=== PATIENT | male | born 1960 | race Two or more races ===

== ENCOUNTER 2019-04-06 02:13 | Inpatient (IN) | payer OTHER ==
[~2019-04-06] VITALS: Ht 175.3 cm; Wt 80.3 kg
--- NOTE | 2019-04-06 07:00 | NUR ---
RN NOTES RECEIVED PATIENT IN BED, ALERT AND ORIENTED X4, ON ROOM AIR, NOT ON ANY FORM OF DISTRESS. WITH COMPLAINTS OF THROAT PAIN. INFORMED PATIENT THAT IM STILL WAITING FOR THE MD'S ADMITTING ORDERS AND WILL ADMINISTER PAIN MEDICATION IF ORDERED. IC ACCESS NOTED ON BILATERAL AC, BOTH G 20. LEFT IN PLACE AND PATENT, RIGHT IS INFILTRATED AND IS PAINFUL ON FLUSHING- WILL REMOVED. PATIENT ORIENTED TO FLOOR AND USE OF CALL LIGHT. ENCOURAGE TO CALL FOR HELP AND ASSISTANCE. SAFETY MEASURES OBSERVED AND PUT IN PLACE, CALL LIGHT PLACED WITHIN REACH. WILL CONTINUE TO MONITOR FOR PATIENT PHIL BESS NP FOR ADMITTING ORDERS
[2019-04-06 08:00] VITALS: BP 98/65
[2019-04-06] MEDS ORDERED: METF-440 PO (08:34)
[2019-04-06] MEDS ORDERED: GABA-534 PO (08:34)
[2019-04-06] MEDS ORDERED: MORPHINE SULFATE INJ 2 MG/ML DISP.SYRIN IV PRN (10:00)
[2019-04-06] MEDS ORDERED: ACETAMINOPHEN 325 MG TABLET PO PRN (10:00)
[2019-04-06] MEDS ORDERED: HYDROCODONE/APAP 5/325MG 1 EACH TABLET PO PRN (10:00)
[2019-04-06] MEDS ORDERED: ONDANSETRON HCL/PF 4 MG/2 ML VIAL IVP PRN (10:00)
[2019-04-06] MEDS ORDERED: MAG HYDROX/AL HYDROX/SIMETH 30 ML UDC PO PRN (10:00)
[2019-04-06] MEDS ORDERED: DEXTROSE 50%-WATER 50 ML DISP.SYRIN IV PRN (10:00)
[2019-04-06] MEDS ORDERED: ZOLPIDEM TARTRATE 5 MG TABLET PO PRN (10:00)
[2019-04-06] MEDS ORDERED: MAGNESIUM HYDROXIDE 30 ML UDC PO PRN (10:00)
[2019-04-06] MEDS ORDERED: GABAPENTIN 300 MG CAPSULE PO SCH (10:30)
[2019-04-06 10:35] LABS: BASOPHILS % (AUTO) 0.3 % (0.0-2.0); HEMATOCRIT 45 % (39-51); HEMOGLOBIN 15.2 g/dL (13.5-17.5); LYMPHOCYTES # (AUTO) 0.8 /CMM (0.8-4.8); LYMPHOCYTES % (AUTO) 5.3 % (20.0-44.0); MEAN CORPUSCULAR HGB CONC 34 g/dl (31.0-36.0); MEAN CORPUSCULAR VOLUME 91 fL (80-96); MONOCYTES # (AUTO) 0.4 /CMM (0.1-1.30); MONOCYTES % (AUTO) 2.6 % (2.0-12.0); NEUTROPHILS # (AUTO) 13.4 /CMM (1.8-8.9); NEUTROPHILS % (AUTO) 91.8 % (43.0-81.0); PLATELET COUNT (AUTO) 141 /CMM (150-450); RED BLOOD CELL COUNT(AUTO) 4.92 MIL/uL (4.5-6.0); WHITE BLOOD COUNT (AUTO) 14.6 K/uL (4.3-11.0)
[2019-04-06 10:45] LABS: ALBUMIN 3.1 g/dL (3.4-5.0); BILIRUBIN,DIRECT 0.2 mg/dL (0.0-0.2); BILIRUBIN,TOTAL 0.6 mg/dL (0.2-1.0); CALCIUM, SERUM 8.3 mg/dL (8.5-10.1); CREATININE 0.8 mg/dL (0.6-1.3); PHOSPHORUS 1.8 mg/dL (2.5-4.9); POTASSIUM 3.7 mmol/L (3.5-5.1); TOTAL PROTEIN, SERUM 7.2 g/dL (6.4-8.2)
[2019-04-06] MEDS ORDERED: K PHOS NEUTRAL 250 MG TABLET PO ONE ×2 (11:30→13:00)
[2019-04-06] MEDS: ENOXAPARIN SODIUM 40 MG/0.4 ML DISP.SYRIN SQ SCH (11:46)
[2019-04-06] MEDS: BLOOD SUGAR DIAGNOSTIC 1 EACH STRIP IN SCH ×3 (11:53→22:02)
[2019-04-06 12:00] VITALS: BP 91/53
[2019-04-06] MEDS ORDERED: FEE PK DOSING 1 MIN EA MC ONE (12:00)
[2019-04-06] MEDS: GABAPENTIN 300 MG CAPSULE PO SCH ×2 (12:08→17:15)
[2019-04-06] MEDS: INSULIN REGULAR, HUMAN 100 UNIT/ML 3 ML VIAL SQ PRN ×3 (12:08→22:03)
[2019-04-06 12:26] LABS: THYROID STIMULATING HORMONE 0.389 uIU/mL (0.358-3.74)
[2019-04-06] MEDS ORDERED: MENTHOL/CETYLPYRD (CEPACOL) 1 LOZ LOZENGE PO PRN (12:30)
[2019-04-06] MEDS: PIPERACILLIN /TAZOBACTAM 3.375 G in IV D5W 50 ML IV SCH ×2 (12:34→17:40)
[2019-04-06] MEDS: IV NS 0.9% 1,000 ML IV PRN (12:35)
[2019-04-06] MEDS ORDERED: VANCOMYCIN 1 GM in IV D5W 250 ML IV SCH (13:00)
[2019-04-06 16:00] VITALS: BP 102/68
--- NOTE | 2019-04-06 19:07 | NUR ---
RN NOTES ENDORSED FOR CONTINUITY OF CARE. NOT ON ANY FORM OF DISTRESS. NO ACUTE CHANGES WITHIN THE SHIFT. ALL NURSING NEEDS ATTENDED AND MET. SAFETY MEASURES IN PLACE AT ALL TIME. CALL LIGHT PLACED WITHIN REACH
--- NOTE | 2019-04-06 19:30 | NUR ---
Met with patient, he speaks Sami only. He lives with friends/roommates in a single level home in [place]. States he was ambulatory and independent with adl's. He has hx of diabetes and states he monitors his blood sugar regularly. His pcp is at [facility]. He will need taxi or bus token if his roommates is unable to pick him up upon discharge. Addendum: 04/06/19 at 1931 by DAKOTA MOHR RN Amended: Links added.
--- NOTE | 2019-04-06 20:00 | NUR ---
SEAN MS INITIAL NOTE RECEIVED PT AOX3 IN BED, INDEPENDENT, ALL NEEDS MET, NS RUNNING@100ML/HR, WELL TOLERATED, VS STABLE, DENIES ANY PAIN AT THIS TIME, ON R/A, WELL TOLERATED.
[2019-04-07 00:05] VITALS: BP 102/64
[2019-04-07] MEDS: PIPERACILLIN /TAZOBACTAM 3.375 G in IV D5W 50 ML IV SCH ×2 (00:20→06:26)
[2019-04-07] MEDS: IV NS 0.9% 1,000 ML IV PRN (04:09)
--- NOTE | 2019-04-07 06:04 | NUR ---
RN MS CLOSING NOTE ENDORSED PT AOX3 IN BED, INDEPENDENT, ALL NEEDS MET, NS RUNNING@100ML/HR, WELL TOLERATED, VS STABLE, PAIN MEDICATION GIVEN FOR C/O H/A,, CONT' ON R/A, WELL TOLERATED.
[2019-04-07 06:28] LABS: HEMATOCRIT 40 % (39-51); HEMOGLOBIN 13.6 g/dL (13.5-17.5); LYMPHOCYTES # (AUTO) 1.4 /CMM (0.8-4.8); LYMPHOCYTES % (AUTO) 7.8 % (20.0-44.0); MEAN CORPUSCULAR HGB CONC 34 g/dl (31.0-36.0); MEAN CORPUSCULAR VOLUME 91 fL (80-96); MONOCYTES # (AUTO) 1.4 /CMM (0.1-1.30); MONOCYTES % (AUTO) 7.7 % (2.0-12.0); NEUTROPHILS # (AUTO) 15.2 /CMM (1.8-8.9); NEUTROPHILS % (AUTO) 84.5 % (43.0-81.0); PLATELET COUNT (AUTO) 147 /CMM (150-450); RED BLOOD CELL COUNT(AUTO) 4.41 MIL/uL (4.5-6.0)
[2019-04-07 06:49] LABS: CREATININE 0.8 mg/dL (0.6-1.3); PHOSPHORUS 2.4 mg/dL (2.5-4.9); POTASSIUM 3.6 mmol/L (3.5-5.1)
[2019-04-07] MEDS: BLOOD SUGAR DIAGNOSTIC 1 EACH STRIP IN SCH ×4 (07:40→21:34)
[2019-04-07] MEDS: INSULIN REGULAR, HUMAN 100 UNIT/ML 3 ML VIAL SQ PRN ×3 (07:43→18:35)
[2019-04-07 08:00] VITALS: BP 90/62
[2019-04-07] MEDS: ENOXAPARIN SODIUM 40 MG/0.4 ML DISP.SYRIN SQ SCH (08:23)
[2019-04-07] MEDS: GABAPENTIN 300 MG CAPSULE PO SCH ×3 (08:23→18:34)
[2019-04-07] MEDS ORDERED: K PHOS NEUTRAL 250 MG TABLET PO ONE (10:30)
[2019-04-07 10:39] VITALS: BP 105/61
[2019-04-07] MEDS ORDERED: IV NS 0.9% 1,000 ML IV PRN (11:12)
[2019-04-07] MEDS: PIPERACILLIN /TAZOBACTAM 3.375 G in IV D5W 100 ML IV SCH ×2 (12:19→19:55)
[2019-04-07 16:00] VITALS: BP 102/64
--- NOTE | 2019-04-07 19:15 | NUR ---
MS1 RN NOTES RECEIVED ON BED A/O X4,SPEAK BELARUSIAN AND KENYAN,NS AT 75 ML/HR RATE IN PROGRESS ON LEFT HAND,CLAIMED PAIN ON SITE AND TENDER TO TO THE TOUCH.AMBULATE WITH STEADY GAIT.CALL LIGHT IN REACH,NEEDS ANTICIPATED.
--- NOTE | 2019-04-07 19:30 | NUR ---
MS1 RN NOTES NEW SALINE LOCK #22 PLACE ON RIGHT FOREARM,FLUSHED WITH NS AND KEPT PATENT.SAME IVF INFUSING AT THIS TIME.
[2019-04-07 20:00] VITALS: BP 159/87
--- NOTE | 2019-04-07 21:34 | NUR ---
MS1 RN NOTES ACCU-CHECK BLOOD SUGAR CHECKED 116,NO INSULIN COVERAGE
[2019-04-08] MEDS: PIPERACILLIN /TAZOBACTAM 3.375 G in IV D5W 100 ML IV SCH ×2 (03:58→11:52)
[2019-04-08 04:00] VITALS: BP 102/62
--- NOTE | 2019-04-08 06:13 | NUR ---
MS 1 RN NOTES NO SIGNIFICANT CHANGE IN STATUS.SLEPT WELL AT NIGHT.IV ABX TOLERATED WELL,AFEBRILE.CALL LIGHT IN REACH,NEEDS ATTENDED.WILL ENDORSE TO DAY NURSE FOR ABHILASH.
[2019-04-08 06:43] LABS: BASOPHILS % (AUTO) 0.3 % (0.0-2.0); EOSINOPHILS % (AUTO) 0.8 % (0.0-6.0); HEMATOCRIT 41 % (39-51); LYMPHOCYTES # (AUTO) 2.9 /CMM (0.8-4.8); LYMPHOCYTES % (AUTO) 28.3 % (20.0-44.0); MEAN CORPUSCULAR HGB CONC 35 g/dl (31.0-36.0); MEAN CORPUSCULAR VOLUME 91 fL (80-96); MONOCYTES # (AUTO) 0.9 /CMM (0.1-1.30); MONOCYTES % (AUTO) 8.4 % (2.0-12.0); NEUTROPHILS # (AUTO) 6.3 /CMM (1.8-8.9); NEUTROPHILS % (AUTO) 62.2 % (43.0-81.0); PLATELET COUNT (AUTO) 157 /CMM (150-450); RED BLOOD CELL COUNT(AUTO) 4.47 MIL/uL (4.5-6.0); WHITE BLOOD COUNT (AUTO) 10.1 K/uL (4.3-11.0)
[2019-04-08 07:00] LABS: CALCIUM, SERUM 7.9 mg/dL (8.5-10.1); CREATININE 0.8 mg/dL (0.6-1.3); PHOSPHORUS 2.7 mg/dL (2.5-4.9); POTASSIUM 3.6 mmol/L (3.5-5.1)
--- NOTE | 2019-04-08 07:00 | NUR ---
MS RN OPENING NOTES RECEIVED PT LYING ON BED,ALERT/ORIENTED X4.CAN AMBULATE WELL.ON ROOM AIR,TOLERATING WELL.NO SOB AND ACUTE DISTRESS NOTED.IV LINE IS ON RIGHT FA G22 WITH IV ZOSYN IS RUNNING.IV SITE IS CLEAN,DRY AND INTACT.NO INFILTRATION NOTED.BED IS IN LOW POSITION AND LOCKED,CALL LIGHT IS WITHIN REACH.WILL CONTINUE TO MONITOR THE PT CLOSELY.
[2019-04-08] MEDS: INSULIN REGULAR, HUMAN 100 UNIT/ML 3 ML VIAL SQ PRN (07:38)
[2019-04-08] MEDS: BLOOD SUGAR DIAGNOSTIC 1 EACH STRIP IN SCH ×2 (07:38→11:52)
[2019-04-08 08:00] VITALS: BP 126/72
[2019-04-08] MEDS: GABAPENTIN 300 MG CAPSULE PO SCH ×2 (08:43→12:32)
[2019-04-08] MEDS: ENOXAPARIN SODIUM 40 MG/0.4 ML DISP.SYRIN SQ SCH (08:52)
[2019-04-08] MEDS ORDERED: AMOX-430 PO (10:47)
--- NOTE | 2019-04-08 12:45 | NUR ---
MS SAP PROJECT MANAGER NOTES PT IS DISCHARGED TO HOME PICKED UP[ BY MANDI,FRIENDS.PT IS ON ROOM AIR,TOLERATING WELL.ALL THE DISCHARGE MEDICATIONS AND INSTRUCTIONS GIVEN TO THE PT AND RESPONSIBLE [employer].SKIN ASSESSMENT IS DONE AND IT IS INTACT.IV LINE IS TAKEN OUT AND NO BLEEDING NOTED.BELONGING LIST SIGNED BY THE PT.VITAL SIGNS CHECKED AND RECORDED.MEDICATION PRESCRIPTION GIVEN TO PT.PT TOLERATED WELL.AMBULATE TO THE PARKING LOT WITH FRIENDS.
== END 2019-04-08 12:45 | disposition home or self-care (01) | DRG 720 ==
LOC: MEDSG1 06:52
PROVIDERS: ADMIT Nurse Practitioner Acute Care; ATTEND Nurse Practitioner Acute Care
DX: A41.9 Sepsis, unspecified organism (principal); E87.2 Acidosis; E11.40 Type 2 diabetes mellitus with diabetic neuropathy, unspecified; D69.6 Thrombocytopenia, unspecified; E44.0 Moderate protein-calorie malnutrition; E83.39 Other disorders of phosphorus metabolism; R13.10 Dysphagia, unspecified; J03.90 Acute tonsillitis, unspecified; N39.0 Urinary tract infection, site not specified; Z79.84 Long term (current) use of oral hypoglycemic drugs; M19.90 Unspecified osteoarthritis, unspecified site
CPT/HCPCS: 36415; 71045-TC; 80048-TC; 80053-TC; 80061-TC; 80076-TC; 80202-TC; 82962-TC; 83735-TC; 84100-TC; 84443-TC; 85025-TC; G0378; J1650; J1815; J2543; J3370; J7030; J7060

== ENCOUNTER 2021-01-14 00:52 | Emergency (ER) | payer OTHER ==
[~2021-01-14] VITALS: Ht 175.3 cm; Wt 81.6 kg
[~2021-01-14 00:52] MED LIST: AMOX-430 PO; GABA-534 PO; METF-440 PO
--- NOTE | 2021-01-14 01:19 | NUR ---
presented to the er for c/o sorethroat and cough for the past week. denied h/a, fever or chills. pt was placed in bed 5 ER and on monitor .
--- NOTE | 2021-01-14 01:40 | NUR ---
covid swab sent to lab
[2021-01-14 01:46] LABS: BASOPHILS % (AUTO) 0.5 % (0.0-2.0); EOSINOPHILS % (AUTO) 7.1 % (0.0-6.0); HEMATOCRIT 43 % (39-51); HEMOGLOBIN 14.7 g/dL (13.5-17.5); LYMPHOCYTES # (AUTO) 3.1 /CMM (0.8-4.8); LYMPHOCYTES % (AUTO) 31.3 % (20.0-44.0); MEAN CORPUSCULAR HGB CONC 34 g/dl (31.0-36.0); MEAN CORPUSCULAR VOLUME 91 fL (80-96); MONOCYTES # (AUTO) 1.4 /CMM (0.1-1.30); MONOCYTES % (AUTO) 13.8 % (2.0-12.0); NEUTROPHILS # (AUTO) 4.6 /CMM (1.8-8.9); NEUTROPHILS % (AUTO) 47.3 % (43.0-81.0); PLATELET COUNT (AUTO) 207 /CMM (150-450); RED BLOOD CELL COUNT(AUTO) 4.75 MIL/uL (4.5-6.0); WHITE BLOOD COUNT (AUTO) 9.8 K/uL (4.3-11.0)
[2021-01-14 02:09] LABS: ALANINE AMINOTRANSFERASE 47 U/L (12-78); ALBUMIN 3.8 g/dL (3.4-5.0); ALKALINE PHOSPHATASE 87 U/L (46-116); ASPARTATE AMINOTRANSFERASE 18 U/L (15-37); B-TYPE NATRIURETIC PEPTIDE 59 PG/ML (0-125); BILIRUBIN,TOTAL 0.4 mg/dL (0.2-1.0); CALCIUM, SERUM 9.2 mg/dL (8.5-10.1); CARBON DIOXIDE 25 mmol/L (21-32); CHLORIDE 105 mmol/L (98-107); GLUCOSE 132 mg/dL (74-106); SODIUM SERUM 139 mmol/L (136-145); TOTAL PROTEIN, SERUM 7.7 g/dL (6.4-8.2); UREA NITROGEN, BLOOD 22 mg/dL (7-18)
[2021-01-14] MEDS ORDERED: METH4TAB3 PO (02:21)
--- NOTE | 2021-01-14 02:34 | NUR ---
pt is medically stable for discharge. Patient discharged to home in stable condition. Rx and Written and verbal after care instructions given. Patient verbalizes understanding of instruction.
[2021-01-14 02:35] VITALS: BP 133/83
== END 2021-01-14 02:35 | disposition home or self-care (01) ==
LOC: ER 00:54
DX: B34.9 Viral infection, unspecified (principal); Z20.822 Contact with and (suspected) exposure to COVID-19; E11.9 Type 2 diabetes mellitus without complications; Z79.84 Long term (current) use of oral hypoglycemic drugs
CPT/HCPCS: 36415; 71045-TC; 80053-TC; 83880; 84484-TC; 85025-TC; C9803

== ENCOUNTER 2021-02-11 18:10 | Emergency (ER) | payer OTHER ==
[~2021-02-11] VITALS: Ht 175.3 cm; Wt 74.8 kg
[~2021-02-11 18:10] MED LIST changes: +METH4TAB3 PO
[2021-02-11] MEDS ORDERED: KETOROLAC TROMETHAMINE INJ 30 MG/ML VIAL ONE (18:36)
[2021-02-11] MEDS ORDERED: DEXAMETHASONE SOD PHOSPHATE 10 MG/ML VIAL ONE (18:36)
[2021-02-11] MEDS ORDERED: CEFTRIAXONE 1GM BAG (ER ONLY) 50 ML IV ONE (18:36)
[2021-02-11] MEDS: IV NS 0.9% 1,000 ML BAG IV ONE (18:48)
[2021-02-11] MEDS: DEXAMETHASONE SOD PHOSPHATE 10 MG/ML VIAL IV ONE (18:48)
[2021-02-11] MEDS: CEFTRIAXONE 1 G in IV D5W 50 ML IV ONE (18:48)
[2021-02-11] MEDS: KETOROLAC TROMETHAMINE INJ 30 MG/ML VIAL IV ONE (18:49)
--- NOTE | 2021-02-11 19:01 | NUR ---
BIBS FROM HOME TO ER BED 6. AAOX4. NOT INRESP DISTRESS, BRETHING EVEN AND UNLABORED BUT TALKING GARBLED. CAME INFOR SORETHROAT X 1 MONTH. PT NOTED WITH RED SWOLLEN TONSILS. SATTING @ 97% ON RA. DENIES SOB. PAIN IS 8/10 AGGREAVATED BY SWALLOWING. MD WAS AT THE BEDSIDE FOR EVAL. ORDERS RECEIVED, NOTED AND CARRIED OUT.
[2021-02-11] MEDS ORDERED: PRED20TA PO (19:49)
[2021-02-11] MEDS ORDERED: AMOX500C2 PO (19:49)
[2021-02-11 19:58] VITALS: BP 118/78
--- NOTE | 2021-02-11 19:58 | NUR ---
Patient discharged to home in stable condition. Written and verbal after care instructions given. Patient verbalizes understanding of instruction.IV removed. Catheter intact and site benign. Pressure and 4x4 applied to site. No bleeding noted. Pt ambulatory with a steady gait
== END 2021-02-11 19:59 | disposition home or self-care (01) ==
LOC: ER 18:18
DX: J02.0 Streptococcal pharyngitis (principal); E11.9 Type 2 diabetes mellitus without complications; Z60.2 Problems related to living alone; Z79.899 Other long term (current) drug therapy
CPT/HCPCS: 96365; 96375; 99284; J0696 ×2; J1100; J1885; J7030; J7060

== ENCOUNTER 2024-06-03 17:27 | Inpatient (IN) | payer BC, OTHER ==
[~2024-06-03] VITALS: Ht 172.7 cm; Wt 73.9 kg
[~2024-06-03 17:27] MED LIST changes: +AMOX500C2 PO; +PRED20TA PO
[2024-06-03] MEDS ORDERED: ACETAMINOPHEN 325 MG TABLET PO PRN (18:30)
[2024-06-03] MEDS ORDERED: ONDANSETRON HCL/PF 4 MG/2 ML VIAL IVP PRN (18:30)
[2024-06-03] MEDS ORDERED: MAGNESIUM HYDROXIDE 30 ML UDC PO PRN (18:30)
[2024-06-03] MEDS ORDERED: Z GUARD REMEDY 4 OZ OINT TP PRN (18:30)
[2024-06-03] MEDS ORDERED: DEXTROSE 50%-WATER 50 ML DISP.SYRIN IV PRN (18:30)
[2024-06-03] MEDS ORDERED: MAG HYDROX/AL HYDROX/SIMETH 30 ML UDC PO PRN (18:30)
[2024-06-03] MEDS ORDERED: NAPR-1164 PO (18:59)
[2024-06-03 20:00] VITALS: BP 102/68; TEMP 97.7; O2SAT 95
[2024-06-03] MEDS: CLINDAMYCIN 900 MG in IV D5W 50 ML IV SCH (20:13)
[2024-06-03 21:20] VITALS: BP 128/50; TEMP 97.7; O2SAT 92
[2024-06-03] MEDS: BLOOD SUGAR DIAGNOSTIC 1 EACH STRIP VI SCH (21:26)
[2024-06-03] MEDS: INSULIN REGULAR, HUMAN 100 UNIT/ML 3 ML VIAL SQ PRN (21:28)
[2024-06-03] MEDS: *INSULIN REGULAR(HUMULIN R)HUM 100 UNIT/ML VIAL SQ PRN (21:53)
[2024-06-04 07:43] LABS: BASOPHILS % (AUTO) 0.2 % (0.0-2.0); EOSINOPHILS # (AUTO) 0.2 K/uL (0.0-0.7); EOSINOPHILS % (AUTO) 2.4 % (0.0-6.0); HEMATOCRIT 42 % (39-51); LYMPHOCYTES # (AUTO) 1.6 K/uL (0.8-4.8); MEAN CORPUSCULAR HEMOGLOBIN 31 PG (26.0-33.0); MEAN CORPUSCULAR HGB CONC 33 g/dl (31.0-36.0); MEAN CORPUSCULAR VOLUME 92 fL (80-96); MONOCYTES # (AUTO) 0.8 K/uL (0.1-1.30); MONOCYTES % (AUTO) 8.4 % (2.0-12.0); NEUTROPHILS # (AUTO) 6.3 K/uL (1.8-8.9); PLATELET COUNT (AUTO) 166 K/uL (150-450); RED BLOOD CELL COUNT(AUTO) 4.56 MIL/uL (4.5-6.0); RED CELL DISTRIBUTION WIDTH 13.1 % (11.5-15.0); WHITE BLOOD COUNT (AUTO) 8.9 K/uL (4.3-11.0)
[2024-06-04 08:00] VITALS: BP 100/64; TEMP 98.2; O2SAT 98
[2024-06-04 08:52] LABS: CALCIUM, SERUM 8.5 mg/dL (8.5-10.1); CREATININE 0.7 mg/dL (0.6-1.3); MAGNESIUM 2.1 mg/dL (1.8-2.4); PHOSPHORUS 2.8 mg/dL (2.5-4.9); POTASSIUM 3.9 mmol/L (3.5-5.1)
[2024-06-04] MEDS: ENOXAPARIN SODIUM 40 MG/0.4 ML DISP.SYRIN SQ SCH (10:00)
[2024-06-04] MEDS: LIDOCAINE 1% INJ 50 ML MDV IJ ONE (14:08)
[2024-06-04] MEDS: TRAMADOL HCL 50 MG TABLET PO ONE (14:37)
[2024-06-04 16:00] VITALS: BP 118/87; TEMP 98.4; O2SAT 98
[2024-06-04] MEDS: HYDROCODONE/APAP 5/325MG TABLET PO PRN (16:44)
[2024-06-04] MEDS ORDERED: ACETAMINOPHEN 325 MG TABLET PO PRN (17:30)
[2024-06-04 20:00] VITALS: BP 96/68; TEMP 97.7; O2SAT 95
[2024-06-05 08:00] VITALS: BP 106/72; TEMP 98.2; O2SAT 98
[2024-06-05 16:00] VITALS: BP 102/74; TEMP 98.4; O2SAT 96
[2024-06-05 20:00] VITALS: BP 114/68; TEMP 98.2; O2SAT 94
[2024-06-05 22:20] VITALS: BP 114/68; TEMP 98.2; O2SAT 94
[2024-06-06 07:13] LABS: BASOPHILS % (AUTO) 0.5 % (0.0-2.0); EOSINOPHILS # (AUTO) 0.2 K/uL (0.0-0.7); EOSINOPHILS % (AUTO) 2.7 % (0.0-6.0); HEMATOCRIT 44 % (39-51); HEMOGLOBIN 14.5 g/dL (13.5-17.5); LYMPHOCYTES % (AUTO) 32.5 % (20.0-44.0); MEAN CORPUSCULAR HEMOGLOBIN 31 PG (26.0-33.0); MEAN CORPUSCULAR HGB CONC 33 g/dl (31.0-36.0); MEAN CORPUSCULAR VOLUME 93 fL (80-96); MONOCYTES # (AUTO) 0.7 K/uL (0.1-1.30); MONOCYTES % (AUTO) 10.7 % (2.0-12.0); NEUTROPHILS # (AUTO) 3.3 K/uL (1.8-8.9); NEUTROPHILS % (AUTO) 53.6 % (43.0-81.0); PLATELET COUNT (AUTO) 210 K/uL (150-450); RED BLOOD CELL COUNT(AUTO) 4.75 MIL/uL (4.5-6.0); WHITE BLOOD COUNT (AUTO) 6.1 K/uL (4.3-11.0)
[2024-06-06 08:00] VITALS: BP 96/70; TEMP 98.6; O2SAT 97
[2024-06-06 08:03] LABS: CALCIUM, SERUM 9.3 mg/dL (8.5-10.1); CREATININE 0.8 mg/dL (0.6-1.3); POTASSIUM 4.1 mmol/L (3.5-5.1)
[2024-06-06] MEDS ORDERED: TRAM50TA2 PO (10:45)
[2024-06-06] MEDS ORDERED: ACET325T53 PO (10:45)
[2024-06-06] MEDS ORDERED: CLIN300C12 PO (10:45)
== END 2024-06-06 15:13 | disposition home health service (06) | DRG 728 ==
LOC: MED 18:11
PROVIDERS: ADMIT Internal Medicine; ATTEND Nurse Practitioner Acute Care
PROC: 0V95XZZ Drainage of Scrotum, External Approach (ICD-10-PCS; principal; 2024-06-04)
DX: N49.2 Inflammatory disorders of scrotum (principal); E11.9 Type 2 diabetes mellitus without complications; I10 Essential (primary) hypertension; Z79.84 Long term (current) use of oral hypoglycemic drugs
CPT/HCPCS: 36415; 80048-TC; 82962-TC; 83735-TC; 84100-TC; 85025-TC; 87081-TC; A4223; A6403; G0378; J1650; J1815; J3490; J7030; J7050; J7060